=== PATIENT | male | born 1950 | race Caucasian/White ===

== ENCOUNTER 2019-05-12 12:28 | Emergency (ER) | payer MEDICARE, BC ==
[2019-05-12] MEDS ORDERED: Metoclopramide 10 MG/2 ML SDV IVPUSH ONE (12:37)
[2019-05-12] MEDS ORDERED: GI Cocktail Oral Solution 30 ML PO ONE (12:38)
[2019-05-12] MEDS ORDERED: Dicyclomine 20 MG/2 ML SDV IM ONE (12:38)
[2019-05-12] MEDS ORDERED: fentaNYL 100 MCG/2 ML SDV IVPUSH ONE (12:38)
[2019-05-12 13:13] LABS: ANION GAP 19.1; CHLORIDE,CL 97 mmol/L (101-111); SODIUM,NA 134 mmol/L (135-145)
--- NOTE | 2019-05-12 13:38 | CR ---
EXAMINATION: Abdomen 1V Upright SEX: Male AGE: 68 years CLINICAL HISTORY: 68-year-old male emergency department NG tube placement. INTERPRETATION: 1. Single upright AP abdomen/lower chest film confirms midline location of the NG tube which follows the course of the stomach body midline and is directed toward the duodenum (RUQ). 2. Lung bases are clear. 3. Multilevel thoracic and upper lumbar disc disease with hypertrophic arthritic changes of the spine. CONCLUSION: Satisfactory NG tube placement.
--- NOTE | 2019-05-12 14:15 | EDM.PDOC ---
ED HPI GENERAL MEDICAL PROBLEM - General Chief Complaint: Abdominal Pain Stated Complaint: HERNIA Time Seen by Provider: 05/12/19 12:34 Source of Information: Reports: Patient, RN History Limitations: Reports: No Limitations - History of Present Illness INITIAL COMMENTS - FREE TEXT/NARRATIVE: 68 year old male who presents to the ER with complaints of abdominal pain, diarrhea and nausea x 10 hours. Patient reports eating a casserole from a yesterday night at 7 PM. He reports wake up1:30 AM with abdominal pain. He reports nausea, dry heaving but no vomiting. He reports 6 episode of diarrhea. Admits having a history of a hernia but states that's normal for him. He denies any recent travel or been around anybody sick. He denies eating breakfast this morning.Patient is a 5 on a 10 but can easily escalated to a 9 on a 10. Patient is described as cramping. No bloody bowel movements noted. He denies any fevers, chills, shortness of breath, chest pain at this time. Reports a history of GI bleed where he had an NG tube placed twice on 2 different occasion Abdomen Pain Score (Numeric/FACES): 10 - Related Data Allergies Allergy/AdvReac Type Severity Reaction Status Date / Time codeine Allergy Nausea and Verified 05/12/19 12:39 Vomiting pregabalin [From Lyrica] Allergy Depression Verified 05/12/19 12:39 amoxicillin [From Augmentin] AdvReac Diarrhea Verified 05/12/19 12:39 clavulanic acid AdvReac Diarrhea Verified 05/12/19 12:39 [From Augmentin] Home Meds: Home Meds Aspirin [Halfprin] 81 mg PO DAILY 12/23/18 [History] Cyanocobalamin (Vitamin B-12) [Cyanocobalamin Injection] 1,000 mcg IJ .MONTHLY 12/23/18 [History] Furosemide 40 mg PO DAILY 12/23/18 [History] Glimepiride [Amaryl] 2 mg PO DAILY 12/23/18 [History] Losartan Potassium 50 mg PO DAILY 12/23/18 [History] Multivitamin [Multi-Day Vitamins] 1 tab PO DAILY 12/23/18 [History] Simvastatin [Zocor] 40 mg PO DAILY 12/23/18 [History] metFORMIN HCl [Metformin HCl] 1,000 mg PO BIDMEALS 12/23/18 [History] Past Medical History HEENT History: Reports: Impaired Vision, Other (See Below) Other HEENT History: UPPER PARTIAL Cardiovascular History: Reports: High Cholesterol, Hypertension Respiratory History: Reports: Sleep Apnea Gastrointestinal History: Reports: Diverticulosis, Other (See Below) Other Gastrointestinal History: VENTRAL HERNIA Genitourinary History: Reports: Other (See Below) Other Genitourinary History: HX OF ERECTILE DYSFUNCTION Musculoskeletal History: Reports: Arthritis, Other (See Below) Other Musculoskeletal History: S/P LEFT SHOULDER SURGERY. S/P KNEE SURGERY Neurological History: Reports: Neuropathy, Peripheral Psychiatric History: Reports: Depression Endocrine/Metabolic History: Reports: Diabetes, Type II, Obesity/BMI 30+ Hematologic History: Reports: Anemia, B12 Deficiency Immunologic History: Reports: None Oncologic (Cancer) History: Reports: None Dermatologic History: Reports: None - Infectious Disease History Infectious Disease History: Reports: Chicken Pox, Measles, Mumps - Past Surgical History Head Surgeries/Procedures: Reports: None HEENT Surgical History: Reports: None Cardiovascular Surgical History: Reports: None Respiratory Surgical History: Reports: None GI Surgical History: Reports: Colonoscopy, Hernia, Abdominal, Other (See Below) Other GI Surgeries/Procedures: S/P VENTRAL HERNIA REPAIR Male Surgical History: Reports: None Endocrine Surgical History: Reports: None Neurological Surgical History: Reports: None Musculoskeletal Surgical History: Reports: Carpal Tunnel, Knee Replacement, Shoulder Surgery Oncologic Surgical History: Reports: None Dermatological Surgical History: Reports: None Social & Family History - Tobacco Use Smoking Status *Q: Light Tobacco Smoker Years of Tobacco use: 30 Packs/Tins Daily: 0.1 Used Tobacco, but Quit: No Second Hand Smoke Exposure: No - Caffeine Use Caffeine Use: Reports: Coffee Other Caffeine Use: APPROX 1 POT COFFEE DAILY - Alcohol Use Days Per Week of Alcohol Use: 7 Number of Drinks Per Day: 3 Total Drinks Per Week: 21 - Recreational Drug Use Recreational Drug Use: No ED ROS GENERAL - Review of Systems Review Of Systems: Comprehensive ROS is negative, except as noted in HPI. ED EXAM, GI/ABD - Physical Exam Exam: See Below Exam Limited By: No Limitations General Appearance: Alert, Moderate Distress Eyes: Bilateral: Normal Appearance Respiratory/Chest: No Respiratory Distress, Lungs Clear, Normal Breath Sounds, No Accessory Muscle Use, Chest Non-Tender Cardiovascular: Normal Peripheral Pulses, Regular Rate, Rhythm, No Murmur GI/Abdominal Exam: Distended, Rigid, Tender (Generalized), Abnormal Bowel Sounds (decreased ) (Male) Exam: Deferred Rectal (Males) Exam: Deferred Back Exam: Normal Inspection, Full Range of Motion. No: CVA Tenderness (L), CVA Tenderness (R) Extremities: Pedal Edema (2 + bilateral pitting edema) Neurological: Alert, Oriented, CN II-XII Intact, Normal Gait Psychiatric: Normal Affect, Normal Mood Skin Exam: Warm, Intact Lymphatic: No Adenopathy Course - Vital Signs Last Recorded V/S: Last Vital Signs Temp 98.2 F 05/12/19 15:49 Pulse 72 05/12/19 15:49 Resp 20 05/12/19 15:49 BP 131/69 05/12/19 15:49 Pulse Ox 94 L 05/12/19 15:49 - Orders/Labs/Meds Orders: Active Orders 24 hr Category Date Time Status EKG Documentation Completion [RC] AM Care 05/12/19 12:45 Active Sodium Chloride 0.9% [Normal Saline] 1,000 ml Med 05/12/19 15:30 Active IV ASDIRECTED Medication Orders Sodium Chloride (Normal Saline) 1,000 mls @ 100 mls/hr IV ASDIRECTED WALLACE Last Admin: 05/12/19 15:47 Dose: 100 mls/hr Labs: Laboratory Tests 05/12/19 05/12/19 05/12/19 Range/Units 12:45 12:45 12:45 WBC 11.8 H (5.0-10.0) 10^3/uL RBC 4.05 L (4.6-6.2) 10^6/uL Hgb 13.1 L (14.0-18.0) g/dL Hct 37.4 L (40.0-54.0) % MCV 92.3 (80-100) fL MCH 32.3 (27.0-34.0) pg MCHC 35.0 (33.0-35.0) g/dL Plt Count 155 (150-450) 10^3/uL Neut % (Auto) 81.4 H (42.2-75.2) % Lymph % (Auto) 11.0 L (20.5-50.1) % Dorado % (Auto) 7.1 (2-8) % Eos % (Auto) 0.3 L (1.0-3.0) % Baso % (Auto) 0.2 (0.0-1.0) % ESR 37 H (0-15) mm/hr Sodium 134 L (135-145) mmol/L Potassium 5.1 H (3.6-5.0) mmol/L Chloride 97 L (101-111) mmol/L Carbon Dioxide 23.0 (21.0-31.0) mmol/L Anion Gap 19.1 BUN 22 H (7-18) mg/dL Creatinine 1.1 (0.6-1.3) mg/dL Est Cr Clr Drug Dosing 61.76 mL/min Estimated GFR (MDRD) > 60 BUN/Creatinine Ratio 20.00 Glucose 335 H (74-105) mg/dL Calcium 10.1 (8.4-10.2) mg/dl Total Bilirubin 1.2 H (0.2-1.0) mg/dL AST 40 (10-42) IU/L ALT 41 (10-60) IU/L Alkaline Phosphatase 63 (42-121) IU/L C-Reactive Protein 1.3 (0.0-1.3) mg/dL Total Protein 8.1 (6.7-8.2) g/dl Albumin 4.2 (3.2-5.5) g/dl Globulin 3.9 Albumin/Globulin Ratio 1.08 Meds: Medications Generic Name Dose Route Start Last Admin Trade Name Prestonq PRN Reason Stop Dose Admin Sodium Chloride 1,000 mls @ 100 mls/hr 05/12/19 15:30 05/12/19 15:47 Normal Saline IV 100 mls/hr ASDIRECTED WALLACE Administration Discontinued Medications Generic Name Dose Route Start Last Admin Trade Name Prestonq PRN Reason Stop Dose Admin Al Hydroxide/Mg Hydroxide 30 ml 05/12/19 12:38 05/12/19 12:57 Gi Cocktail PO 05/12/19 12:39 30 ml ONETIME ONE Administration Dicyclomine HCl 20 mg 05/12/19 12:38 05/12/19 12:53 Bentyl IM 05/12/19 12:39 20 mg ONETIME ONE Administration Fentanyl 50 mcg 05/12/19 12:38 05/12/19 12:57 Sublimaze IVPUSH 05/12/19 12:39 50 mcg ONETIME ONE Administration Metoclopramide HCl 10 mg 05/12/19 12:37 05/12/19 12:49 Reglan IVPUSH 05/12/19 12:38 10 mg ONETIME ONE Administration - Re-Assessments/Exams Free Text/Narrative Re-Assessment/Exam: Review labs, Ct and EKG results with patient. Reglan 10 mg, GI cocktail, Bentyl 30 mg IM and Fentanyl 50 mcg and moderate relief. NG tube placed with 700 of yellow drainage noted. Patient had multiple bowel movements in the ER. Discussed case with Dr. Shultz who accepted patient for transfer. NS @ 1000 mg initiated. Departure - Departure Time of Disposition: 16:05 Disposition: DC/Tfer to [facility] 02 Condition: Fair Clinical Impression: Mechanical obstruction of the intestine, Hyperkalemia Diarrhea Qualifiers: Diarrhea type: unspecified type Qualified Code(s): R19.7 - Diarrhea, unspecified - Discharge Information Forms: ED Department Discharge, Interfacility Transfer EMTALA Sepsis Event Note - Evaluation Sepsis Screening Result: No Definite Risk - Focused Exam Vital Signs: Vital Signs Temp Pulse Resp BP Pulse Ox 05/12/19 15:49 98.2 F 72 20 131/69 94 L 05/12/19 12:31 96.9 F 79 20 129/90 99 Date Exam was Performed: 05/12/19 Time Exam was Performed: 15:59 - My Orders Last 24 Hours: My Active Orders 05/12/19 12:45 EKG Documentation Completion [RC] AM 05/12/19 15:30 Sodium Chloride 0.9% [Normal Saline] 1,000 ml IV ASDIRECTED - Assessment/Plan Last 24 Hours: My Active Orders 05/12/19 12:45 EKG Documentation Completion [RC] AM 05/12/19 15:30 Sodium Chloride 0.9% [Normal Saline] 1,000 ml IV ASDIRECTED
--- NOTE | 2019-05-12 14:19 | CT ---
EXAMINATION: Abdomen Pelvis wo Cont SEX: Male AGE: 68 years CLINICAL HISTORY: 68-year-old 305 pound diabetic male smoker with abdominal pain, diarrhea and nausea. Rule out mechanical obstruction or other abnormality. Scan technique: Acquisition of data emergency unenhanced CT scan of the abdomen and pelvis obtained with the patient lying supine on the Siemens multi slice scanner [place], [place]. All data archived in the PACS system for storage, reformatting axial/sagittal/coronal planes and study. Interpretation: Abnormal. 1. NG tube empty stomach LUQ. 2. Cholelithiasis (multiple tiny dependent intraluminal calcified gallstones) RUQ. 3. Large fatty liver without discrete intrahepatic cystic or solid mass. No abnormal dilatation intra/extrahepatic biliary ducts. 4.*Prominent 3 cm long ventral wall defect right of midline (beneath the sternum) with focal incarceration hepatic flexure of the colon and consequent, associated proximal mechanical bowel obstruction. 5. No intra-abdominal/pelvic mass lesion, inflammatory "dirty" peritoneal fat, ascites, or free air. Lung bases clear. 6. Normal caliber aortoiliac vessels. Severe multilevel lumbar disc disease with associated hypertrophic spondylosis. CONCLUSION: Ventral wall herniation with incarcerated "knuckle" of large intestine (colon RUQ) and mechanical obstruction.
[2019-05-12] MEDS ORDERED: Sodium Chloride 0.9% 1,000 ML IV SCH (15:30)
== END 2019-05-12 16:30 ==
LOC: DL.ED 12:28
DX: K56.609 Unspecified intestinal obstruction, unspecified as to partial versus complete obstruction (principal); E87.5 Hyperkalemia; R19.7 Diarrhea, unspecified; I10 Essential (primary) hypertension; E11.42 Type 2 diabetes mellitus with diabetic polyneuropathy; E78.00 Pure hypercholesterolemia, unspecified; E66.9 Obesity, unspecified; Z68.42 Body mass index [BMI] 45.0-49.9, adult; F32.9 Major depressive disorder, single episode, unspecified; F17.210 Nicotine dependence, cigarettes, uncomplicated; Z88.5 Allergy status to narcotic agent; Z88.8 Allergy status to other drugs, medicaments and biological substances; Z88.1 Allergy status to other antibiotic agents; Z79.82 Long term (current) use of aspirin; Z79.84 Long term (current) use of oral hypoglycemic drugs; Z79.899 Other long term (current) drug therapy
CPT/HCPCS: 36415; 74018; 74176; 80053; 85025; 85651; 86140; 93005; 96361; 96372; 96374; 96375; 99285; A9270; J0500; J2765; J3010; J7030; 99284

== ENCOUNTER 2021-03-28 10:46 | Emergency (ER) | payer MEDICARE, BC ==
--- NOTE | 2021-03-28 11:13 | EDM.PDOC ---
ED HPI GENERAL MEDICAL PROBLEM - General Chief Complaint: General Stated Complaint: TOE FELL OFF Time Seen by Provider: 03/28/21 11:00 Source of Information: Reports: Patient, Old Records, RN, RN Notes Reviewed History Limitations: Reports: No Limitations - History of Present Illness INITIAL COMMENTS - FREE TEXT/NARRATIVE: Pt presents to ER from home by POV with c/o the end of the left second toe is infected and is falling off. Pt has Hx of DM Type 2, HTN, high cholesterol, and obesity. He reports having a chronic hammer toe with callus at the distal tip. He tries to keep the callus trimmed. Several weeks ago the toe became swollen and red. He had an appointment with Dr. Hines at [facility], but had to cancel it due to winter road conditions. He claims he was rescheduled for . Now he says pus has been coming out of the end of his toe, and today when he removed the bandage the whole end of his lifted up, but did not come all the way off. Denies pain or fever. Onset: Unknown/Unsure Duration: Chronic, Getting Worse Location: Reports: Lower Extremity, Left Quality: Reports: Other (Denies pain) Severity: Severe Improves with: Reports: None Worsens with: Reports: None Associated Symptoms: Reports: No Other Symptoms - Related Data Allergies Allergy/AdvReac Type Severity Reaction Status Date / Time codeine Allergy Nausea and Verified 05/12/19 12:39 Vomiting pregabalin [From Lyrica] Allergy Depression Verified 05/12/19 12:39 amoxicillin [From Augmentin] AdvReac Diarrhea Verified 05/12/19 12:39 clavulanic acid AdvReac Diarrhea Verified 05/12/19 12:39 [From Augmentin] Home Meds: Home Meds Aspirin [Halfprin] 81 mg PO DAILY 12/23/18 [History] Cyanocobalamin (Vitamin B-12) [Cyanocobalamin Injection] 1,000 mcg IJ .MONTHLY 12/23/18 [History] Furosemide 40 mg PO DAILY 12/23/18 [History] Glimepiride [Amaryl] 2 mg PO DAILY 12/23/18 [History] Losartan Potassium 50 mg PO DAILY 12/23/18 [History] Multivitamin [Multi-Day Vitamins] 1 tab PO DAILY 12/23/18 [History] Simvastatin [Zocor] 40 mg PO DAILY 12/23/18 [History] metFORMIN HCl [Metformin HCl] 1,000 mg PO BIDMEALS 12/23/18 [History] Past Medical History HEENT History: Reports: Impaired Vision, Other (See Below) Other HEENT History: UPPER PARTIAL Cardiovascular History: Reports: High Cholesterol, Hypertension Respiratory History: Reports: Sleep Apnea Gastrointestinal History: Reports: Diverticulosis, Other (See Below) Other Gastrointestinal History: VENTRAL HERNIA Genitourinary History: Reports: Other (See Below) Other Genitourinary History: HX OF ERECTILE DYSFUNCTION Musculoskeletal History: Reports: Arthritis, Other (See Below) Other Musculoskeletal History: S/P LEFT SHOULDER SURGERY. S/P KNEE SURGERY Neurological History: Reports: Neuropathy, Peripheral Psychiatric History: Reports: Depression Endocrine/Metabolic History: Reports: Diabetes, Type II, Obesity/BMI 30+ Hematologic History: Reports: Anemia, B12 Deficiency Immunologic History: Reports: None Oncologic (Cancer) History: Reports: None Dermatologic History: Reports: None - Infectious Disease History Infectious Disease History: Reports: Chicken Pox, Measles, Mumps - Past Surgical History Head Surgeries/Procedures: Reports: None HEENT Surgical History: Reports: None Cardiovascular Surgical History: Reports: None Respiratory Surgical History: Reports: None GI Surgical History: Reports: Colonoscopy, Hernia, Abdominal, Other (See Below) Other GI Surgeries/Procedures: S/P VENTRAL HERNIA REPAIR Male Surgical History: Reports: None Endocrine Surgical History: Reports: None Neurological Surgical History: Reports: None Musculoskeletal Surgical History: Reports: Carpal Tunnel, Knee Replacement, Shoulder Surgery Oncologic Surgical History: Reports: None Dermatological Surgical History: Reports: None Social & Family History - Family History Family Medical History: No Pertinent Family History - Caffeine Use Caffeine Use: Reports: Coffee Other Caffeine Use: APPROX 1 POT COFFEE DAILY ED ROS GENERAL - Review of Systems Review Of Systems: Comprehensive ROS is negative, except as noted in HPI. ED EXAM, GENERAL - Physical Exam Exam: See Below Exam Limited By: No Limitations General Appearance: Alert, No Apparent Distress, Obese Respiratory/Chest: No Respiratory Distress Peripheral Pulses: 1+: Dorsalis Pedis (L) (by hand held doppler), Dorsalis Pedis (R) (by hand held doppler), 2+: Posterior Tibial (L) (by hand held doppler), Posterior Tibial (R) (by hand held doppler) Extremities: Normal Capillary Refill, Other (Left 2nd toe is erythematous, swollen & with increased warmth, mild hammer toe flexion with callus at distal tip & unstagable deep ulcer with soft tissue maceration, purulent drainage) Neurological: Alert, Oriented, Other (No motor deficits. Decreased sensation to feet.) Psychiatric: Normal Affect, Normal Mood Skin Exam: Warm, Dry Course - Vital Signs Last Recorded V/S: Last Vital Signs Temp 98.1 F 03/28/21 11:02 Pulse 78 03/28/21 11:02 Resp 16 03/28/21 11:02 BP 124/66 03/28/21 11:02 Pulse Ox 99 03/28/21 11:02 - Orders/Labs/Meds Orders: Active Orders 24 hr Category Date Time Status Toes Second Digit Lt T1 [CR] Stat Exams 03/28/21 11:02 Taken CULTURE WOUND [RM] Stat Lab 03/28/21 10:59 Received - Re-Assessments/Exams Free Text/Narrative Re-Assessment/Exam: 03/28/21 12:09 I called [facility], and they will see the pt tomorrow, 03/29/21 at 0850HRS. Departure - Departure Time of Disposition: 12:13 Disposition: Home, Self-Care 01 Condition: Fair Clinical Impression: Diabetic ulcer of toe of left foot Qualifiers: Diabetes mellitus type: type 2 Non-pressure ulcer stage: unspecified non- pressure ulcer stage Qualified Code(s): E11.621 - Type 2 diabetes mellitus with foot ulcer; L97.529 - Non-pressure chronic ulcer of other part of left foot with unspecified severity - Discharge Information *PRESCRIPTION DRUG MONITORING PROGRAM REVIEWED*: Not Applicable *COPY OF PRESCRIPTION DRUG MONITORING REPORT IN PATIENT JAMES: Not Applicable Instructions: Pressure Injury, Skin Abscess, Cellulitis, Adult Forms: ED Department Discharge Additional Instructions: Rx: Clindamycin 300mg Rx: Doxycycline 100mg Follow up at [facility] tomorrow at 8:50AM. Sepsis Event Note (ED) - Focused Exam Vital Signs: Vital Signs Temp Pulse Resp BP Pulse Ox 03/28/21 11:02 98.1 F 78 16 124/66 99 - My Orders Last 24 Hours: My Active Orders 03/28/21 10:59 CULTURE WOUND [RM] Stat 03/28/21 11:02 Toes Second Digit Lt T1 [CR] Stat - Assessment/Plan Last 24 Hours: My Active Orders 03/28/21 10:59 CULTURE WOUND [RM] Stat 03/28/21 11:02 Toes Second Digit Lt T1 [CR] Stat
--- NOTE | 2021-03-28 12:12 | CR ---
EXAMINATION: Toes Second Digit Lt 3V SEX: Male AGE: 70 years CLINICAL HISTORY: 70-year-old diabetic male with purulent ulcer, "second toe, left forefoot "to the bone" Interpretation: Abnormal. Swollen second digit left forefoot. Apparent avulsion of the toenail with gas in the underlying soft tissues. No foreign bodies. Hammertoe deformities. No sign of fracture or dislocation bones of the left forefoot. No cortical erosion or bony destruction of the underlying phalange ease second toe. Incidentally noted chronic arthritic degenerative changes tarsal bones of the midfoot.
== END 2021-03-28 12:28 | disposition home or self-care (01) ==
LOC: DL.ED 10:46
DX: E11.621 Type 2 diabetes mellitus with foot ulcer (principal); L97.529 Non-pressure chronic ulcer of other part of left foot with unspecified severity; E78.00 Pure hypercholesterolemia, unspecified; I10 Essential (primary) hypertension; E66.9 Obesity, unspecified; Z68.42 Body mass index [BMI] 45.0-49.9, adult; Z79.82 Long term (current) use of aspirin; Z79.84 Long term (current) use of oral hypoglycemic drugs; Z79.899 Other long term (current) drug therapy; Z88.5 Allergy status to narcotic agent; Z88.0 Allergy status to penicillin; Z88.8 Allergy status to other drugs, medicaments and biological substances
CPT/HCPCS: 73660-T1; 87070; 87077; 87186; 99283-25

== ENCOUNTER 2023-07-19 08:15 | Emergency (ER) | payer MEDICARE, BC ==
[2023-07-19] MEDS: Lidocaine 5% 700 MG Patch TOP ONE (09:03)
[2023-07-19] MEDS: Ketorolac 30 MG/ML SDV IM ONE (09:03)
[2023-07-19] MEDS: Ondansetron 4 MG Tab.DIS PO ONE (09:03)
== END 2023-07-19 09:56 ==
LOC: DL.ED 08:15
DX: S22.31XA Fracture of one rib, right side, initial encounter for closed fracture (principal); I10 Essential (primary) hypertension; E78.00 Pure hypercholesterolemia, unspecified; E11.9 Type 2 diabetes mellitus without complications; Z88.5 Allergy status to narcotic agent; Z88.0 Allergy status to penicillin; Z88.8 Allergy status to other drugs, medicaments and biological substances; Z79.82 Long term (current) use of aspirin; Z79.899 Other long term (current) drug therapy; Z79.84 Long term (current) use of oral hypoglycemic drugs; W01.0XXA Fall on same level from slipping, tripping and stumbling without subsequent striking against object, initial encounter
CPT/HCPCS: 71101; 96372; 99283; A9270; J1885